=== PATIENT | female | born 1945 | race Hispanic/Latino ===

== ENCOUNTER 2023-09-08 16:57 | Emergency (ER) | payer MEDICARE, SELFPAY ==
[2023-09-08] MEDS ORDERED: traMADol HCl 50 MG TAB ONE (17:37)
[2023-09-08] MEDS ORDERED: Amoxicillin/Potassium Clav 875 MG TAB ONE (17:45)
== END 2023-09-08 17:54 | disposition home or self-care (01) ==
LOC: NAV ERS 16:57
DX: R51.9 Headache, unspecified (principal); I10 Essential (primary) hypertension
CPT/HCPCS: 99283